=== PATIENT | male | born 1945 | race Caucasian/White ===

== ENCOUNTER 2017-12-28 06:34 | Emergency (ER) | payer OTHER ==
[2017-12-28] MEDS ORDERED: HYOSCYAMINE SULFATE 0.125 MG TAB PO ONE (07:04)
[2017-12-28] MEDS ORDERED: LIDOCAINE 2% VISCOUS 15 ML UDCUP PO ONE (07:04)
[2017-12-28] MEDS ORDERED: MAG HYDROX/AL HYDROX/SIMETH 30 ML UDCUP PO ONE (07:04)
--- NOTE | 2017-12-28 07:08 | EDPHY ---
H & P Stated Complaint: burning esophogus slight blood x4 day Time Seen by Provider: 12/28/17 06:53 HPI/ROS: CHIEF COMPLAINT: Dyspepsia HISTORY OF PRESENT ILLNESS: The patient presents the ED with a four-day history of dyspepsia. The patient does have occasional gastroesophageal reflux disease. He takes no regular medications for this. He denies any melena or hematemesis. He did have a very scant episode of hemoptysis and bloody nasal discharge earlier in the week. The patient denies any ongoing symptoms of bleeding. The patient regularly receives his care at the [facility]. The patient the states his symptoms are exquisitely linked to swallowing. He denies additional acute complaints. REVIEW OF SYSTEMS: A comprehensive 10 point review of systems is otherwise negative aside from elements mentioned in the history of present illness. Source: Patient Exam Limitations: No limitations - Personal History Current Tetanus/Diphtheria Vaccine: Yes Current Tetanus Diphtheria and Acellular Pertussis (TDAP): Yes Tetanus Vaccine Date: < 10 years - Medical/Surgical History Hx Asthma: No Hx Chronic Respiratory Disease: No Hx Diabetes: No Hx Cardiac Disease: No Hx Renal Disease: No Hx Cirrhosis: No Hx Alcoholism: No Hx HIV/AIDS: No Hx Splenectomy or Spleen Trauma: No Other PMH: appendicitis, skin cancer, melanoma, depression, anxiety, PTSD, reflux - Social History Smoking Status: Never smoked - Physical Exam Exam: General Appearance: Alert, no distress Eyes: Pupils equal and round no pallor or injection ENT, Mouth: Mucous membranes moist Respiratory: There are no retractions, lungs are clear to auscultation Cardiovascular: Regular rate and rhythm Gastrointestinal: Abdomen is soft and nontender, no masses, bowel sounds normal Neurological: A&O, normal motor function, normal sensory exam, normal cranial nerves Skin: Warm and dry, no rashes Musculoskeletal: Neck is supple nontender Extremities: symmetrical, full range of motion Constitutional: Initial Vital Signs Temperature (C) 36.5 C 12/28/17 06:40 Heart Rate 63 12/28/17 06:40 Respiratory Rate 18 12/28/17 06:40 Blood Pressure 99/71 L 12/28/17 06:40 O2 Sat (%) 95 12/28/17 06:40 O2 Delivery Mode Room Air Allergies/Adverse Reactions: No Known Allergies Allergy (Verified 01/21/14 10:56) Home Medications: Medication Instructions Recorded Xanax 10/04/09 Prozac Unk Dose 10/05/12 Pantoprazole Sodium [Protonix 40mg 40 mg PO BID #60 tab 12/28/17 (*)] Medical Decision Making ED Course/Re-evaluation: The patient was given a GI cocktail in the emergency department. He presents to the ED with symptoms of dyspepsia. The patient will be instructed to begin taking Protonix 40 mg twice daily. The patient is advised to follow up with Gastroenterology for any unimproved symptoms. He is given the number of the on-call field radio operator. The patient will be discharged home with customary aftercare instructions and return precautions. Differential Diagnosis: Differential diagnosis considered includes gastroesophageal reflux disease, upper GI bleed, lower GI bleed, hiatal hernia - Data Points Medications Given: Discontinued Medications Al Hydroxide/Mg Hydroxide (Maalox Susp) 30 ml PO ONCE ONE Stop: 12/28/17 07:05 Last Admin: 12/28/17 07:11 Dose: 30 ml Hyoscyamine Sulfate (Levsin, Hyomax-Sl) 0.25 mg PO ONCE ONE Stop: 12/28/17 07:05 Last Admin: 12/28/17 07:11 Dose: 0.25 mg Lidocaine (Lidocaine 2% Viscous) 15 ml PO ONCE ONE Stop: 12/28/17 07:05 Last Admin: 12/28/17 07:11 Dose: 15 ml Departure - Departure Disposition: Home, Routine, Self-Care Clinical Impression: Dyspepsia Condition: Good Instructions: Indigestion (ED) Additional Instructions: 1. Please begin Protonix as prescribed. 2. Maalox as needed for any esophageal discomfort. 3. Return to the ED for increasing pain, bleeding or other concerns. 4. You should follow up with Gastroenterology for consideration of additional testing if you have any ongoing unimproved symptoms. You have been given the number of our on-call field radio operator. Referrals: [facility] [Other] - As per Instructions Vidal Michael MD [Medical Doctor] - As per Instructions Prescriptions: Pantoprazole Sodium [Protonix 40mg (*)] 40 mg PO BID #60 tab
[2017-12-28 08:02] VITALS: BP 100/78
== END 2017-12-28 08:03 | disposition home or self-care (01) ==
DX: R10.13 Epigastric pain (principal)
CPT/HCPCS: 96374

== ENCOUNTER 2018-01-10 07:44 | Emergency (ER) | payer OTHER ==
[2018-01-10 07:52] VITALS: BP 149/51
--- NOTE | 2018-01-10 08:03 | EDPHY ---
H & P Stated Complaint: Sore throat Time Seen by Provider: 01/10/18 07:54 HPI/ROS: CHIEF COMPLAINT: Sore throat HISTORY OF PRESENT ILLNESS: The patient presents to the ED with a 2 day history of sore throat. The patient denies fever or cough. The patient does have a history of a failed dental implant which is also causing him some mild discomfort. The patient denies any additional acute complaints. He is scheduled to see his dentist at the [facility] next week. REVIEW OF SYSTEMS: A comprehensive 10 point review of systems is otherwise negative aside from elements mentioned in the history of present illness. Source: Patient - Personal History Current Tetanus/Diphtheria Vaccine: Yes Tetanus Vaccine Date: < 10 years - Medical/Surgical History Hx Asthma: No Hx Chronic Respiratory Disease: No Hx Diabetes: No Hx Cardiac Disease: No Hx Renal Disease: No Hx Cirrhosis: No Hx Alcoholism: No Hx HIV/AIDS: No Hx Splenectomy or Spleen Trauma: No Other PMH: appendicitis, skin cancer, melanoma, depression, anxiety, PTSD, reflux - Social History Smoking Status: Never smoked - Physical Exam Exam: General Appearance: Alert, no distress Eyes: Pupils equal and round no pallor or injection ENT, Mouth: Mucous membranes moist, tap tenderness over dental to implant, pharyngeal erythema without evidence of peritonsillar abscess or mass Respiratory: There are no retractions, lungs are clear to auscultation Cardiovascular: Regular rate and rhythm Gastrointestinal: Abdomen is soft and nontender, no masses, bowel sounds normal Neurological: A&O, normal motor function, normal sensory exam, normal cranial nerves Skin: Warm and dry, no rashes Musculoskeletal: Neck is supple nontender Extremities: symmetrical, full range of motion Psychiatric: Patient is oriented X 3, there is no agitation Constitutional: Initial Vital Signs Heart Rate 63 01/10/18 07:49 Respiratory Rate 18 01/10/18 07:49 Blood Pressure 149/51 H 01/10/18 07:49 O2 Sat (%) 98 01/10/18 07:49 O2 Delivery Mode Room Air Allergies/Adverse Reactions: No Known Allergies Allergy (Verified 01/10/18 07:52) Home Medications: Medication Instructions Recorded Xanax 10/04/09 Prozac Unk Dose 10/05/12 Pantoprazole Sodium [Protonix 40mg 40 mg PO BID #60 tab 12/28/17 (*)] Penicillin V Potassium [Pen Vk] 500 mg PO TID #21 tab 01/10/18 Medical Decision Making ED Course/Re-evaluation: Patient will be treated with pharyngitis and possible apical abscess with penicillin VK. Departure - Departure Disposition: Home, Routine, Self-Care Clinical Impression: Acute pharyngitis Condition: Good Instructions: Pharyngitis (ED) Additional Instructions: 1. Please take antibiotics as directed. 2. Follow up with your dentist at [facility] as scheduled. 3. Return to the ED for markedly worsening symptoms or other concerns. Referrals: [facility] [Other] - As per Instructions
== END 2018-01-10 08:10 | disposition home or self-care (01) ==
DX: J02.9 Acute pharyngitis, unspecified (principal)

== ENCOUNTER 2018-01-14 07:23 | Emergency (ER) | payer OTHER ==
--- NOTE | 2018-01-14 08:29 | EDPHY ---
H & P Stated Complaint: Continued sore throat and tooth pain. Here earlier this week for same. Time Seen by Provider: 01/14/18 07:31 - Personal History Current Tetanus Diphtheria and Acellular Pertussis (TDAP): Yes Tetanus Vaccine Date: < 10 years - Medical/Surgical History Hx Asthma: No Hx Chronic Respiratory Disease: No Hx Diabetes: No Hx Cardiac Disease: No Hx Renal Disease: No Hx Cirrhosis: No Hx Alcoholism: No Hx HIV/AIDS: No Hx Splenectomy or Spleen Trauma: No Other PMH: appendicitis, skin cancer, melanoma, depression, anxiety, PTSD, reflux - Social History Smoking Status: Never smoked Constitutional: Initial Vital Signs Temperature (C) 36.5 C 01/14/18 07:24 Heart Rate 57 L 01/14/18 07:24 Respiratory Rate 16 01/14/18 07:24 Blood Pressure 149/56 H 01/14/18 07:24 O2 Sat (%) 58 L 01/14/18 07:24 O2 Delivery Mode Room Air Allergies/Adverse Reactions: No Known Allergies Allergy (Verified 01/10/18 07:52) Home Medications: Medication Instructions Recorded Xanax 10/04/09 Prozac Unk Dose 10/05/12 Pantoprazole Sodium [Protonix 40mg 40 mg PO BID #60 tab 12/28/17 (*)] Penicillin V Potassium [Pen Vk] 500 mg PO TID #21 tab 01/10/18 Lidocaine 2% Viscous 5 ml MM QID #100 ml 01/14/18 Nystatin Susp [Mycostatin Oral 5 ml MM QID #120 ml 01/14/18 Liquid] Medical Decision Making ED Course/Re-evaluation: CHIEF COMPLAINT: Sore throat, tooth pain HISTORY OF PRESENT ILLNESS: The patient is a 72 y/o male post left upper tooth implant 3 months ago complaining of a sore throat and tooth pain at the site of the implant that has been ongoing continuously since the procedure. He's been to the [facility] dentist three times this issue and was not prescribed antibiotics during any of those visits. He came to the ED 4 days ago with the same complaint and was prescribed penicillin. He has been taking that three times daily for the last 4 days with no improvement in symptoms. Today he also has associated left tongue pain. He denies fatigue, fever, cough, or other complaints. REVIEW OF SYSTEMS: A 10 point review of systems was performed and is negative with the exception of the elements mentioned in the history of present illness. PHYSICAL EXAM: HR, BP, O2 Sat, RR. Temp noted General Appearance: Alert, well hydrated, appropriate, and non-toxic appearing. Head: Atraumatic without scalp tenderness or obvious injury Eyes: Pupils equal, round, reactive to light and accommodation, EOMI, no trauma , no injection. Ears: Clear bilaterally, no perforation, normal landmarks Nose: Atraumatic, no rhinorrhea, clear. Throat: Scattered oropharyngeal pustules on an erythematous base, no lesions, normal tonsils, mucus membranes moist. Tenderness at site of left upper implant with small ulceration and pus above site. Neck: Supple, non-tender, no lymphadenopathy, mild anterior cervical tenderness. Respiratory: No retractions, no distress, no wheezes, and no accessory muscle use. Lungs are clear to auscultation bilaterally. Cardiovascular: Regular rate and rhythm, no murmurs, rubs, or gallops. Good capillary refill all extremities. Gastrointestinal: Abdomen is soft, non-tender, non-distended, no masses, no rebound, no guarding, no peritoneal signs. Musculoskeletal: Normal active ROM of all extremities, atraumatic. Neurological: Alert, appropriate, and interactive. Nonfocal. Skin: No rashes, good turgor, no nodules on palpation. PAST MEDICAL HISTORY: PTSD - Xanax, depression PAST SURGICAL HISTORY: Dental implant 3 months ago at the [facility] SOCIAL HISTORY: Lives in [place]. Disabled. . DIFFERENTIAL DIAGNOSIS: The differential diagnosis for the patient's symptoms included but was not limited to pharyngitis - fungal, viral, bacterial, dental implant complication, HSV. MEDICAL DECISION MAKING: This is a 72 y/o who presents with a 3-month history of sore throat and dental pain following a dental implant procedure. Symptoms have not improved after starting a course of penicillin 4 days ago. On exam he has scattered oropharyngeal pustules on an erythematous base and tenderness around the implant. Suspect fungal or viral infection in addition to possible dental implant complication. Plan for treatment with antifungal and lidocaine mouthwash and will refer for follow up with our oral surgeon. Recommended discontinuing antibiotics. Patient is comfortable with plan for discharge. - Data Points Laboratory Results: 01/14/18 01/14/18 Unknown 07:40 Group A Strep Screen NEGATIVE (NEGATIVE) Group A Strep DNA Pending Departure - Departure Disposition: Home, Routine, Self-Care Clinical Impression: Oropharynx infection Condition: Good Instructions: Pharyngitis (ED) Additional Instructions: 1. Use mouthwash as prescribed for symptoms. 2. Follow up with Dr. Hernández, oral surgeon, for assessment of your dental implant. 3. Return for difficulty breathing, difficulty swallowing, or other worsening of condition. Referrals: Narendra Hernández MD [Medical Doctor] - As per Instructions Prescriptions: Lidocaine 2% Viscous 5 ml MM QID #100 ml Nystatin Susp [Mycostatin Oral Liquid] 5 ml MM QID #120 ml Report Scribed for: Johnathan Mata Report Scribed by: Laura Rosa Date of Report: 01/14/18 Time of Report: 08:29
[2018-01-14 08:55] VITALS: BP 128/71
== END 2018-01-14 08:53 | disposition home or self-care (01) ==
DX: J39.2 Other diseases of pharynx (principal)